=== PATIENT | male | born 1985 | race Caucasian/White ===

== ENCOUNTER 2016-05-02 14:58 | Emergency (ER) | payer BC ==
[~2016-05-02] VITALS: Ht 182.9 cm; Wt 90.9 kg
[2016-05-02 15:02] VITALS: BP 147/83; TEMP 98.2
[2016-05-02] MEDS ORDERED: CEPHALEXIN500 M1 PO (16:01)
[2016-05-02 16:37] VITALS: PULSE 78
== END 2016-05-02 16:38 | disposition home or self-care (01) ==
LOC: COL.ER 14:58
DX: S02.40FA Zygomatic fracture, left side, initial encounter for closed fracture (principal); S00.81XA Abrasion of other part of head, initial encounter; Y00.XXXA Assault by blunt object, initial encounter; Y92.414 Local residential or business street as the place of occurrence of the external cause